=== PATIENT | female | born 1975 | race Caucasian/White ===

== ENCOUNTER 2021-01-02 08:40 | Day surgery (SDC) | payer OTHER ==
[2021-01-02] VITALS (11 sets, daily range): BP systolic 131–146; BP diastolic 72–88; PULSE 61–77; TEMP 97.4
[~2021-01-02] VITALS: Ht 177.8 cm; Wt 155.9 kg
[2021-01-02 09:39] LABS: HEMATOCRIT 38.8 % (37.0-47.0); HEMOGLOBIN 12.6 g/dl (12.5-16.0); MEAN CELL VOLUME 100 fl (80.0-100.0); MEAN CORPUSCULAR HEMOGLOBIN 33 pg (27.0-31.0); MEAN CORPUSCULAR HGB CONC 33 g/dl (33.0-37.0); PLATELET COUNT 326 K/mm3 (130-400); RED BLOOD COUNT 3.88 M/mm3 (4.10-5.30); REDCELL DISTRIBUTION WIDTH-CV 13.2 % (11.5-14.5)
[2021-01-02 09:49] LABS: PROTHROMBIN TIME 11.5 SECONDS (9.7-12.8)
[2021-01-02 09:51] LABS: CALCIUM 8.9 mg/dL (8.4-10.2); CREATININE, serum 0.75 (0.52-1.25); POTASSIUM 4.5 mmol/L (3.4-5.0)
[2021-01-02 09:55] LABS: PARTIAL THROMBOPLASTIN TIME 35.7 SECONDS (26.0-37.0)
[2021-01-02] MEDS ORDERED: ASPIRIN 81M81 MG/TA2 PO (10:23)
[2021-01-02] MEDS ORDERED: TOPROL XL 25MG25 MG PO (10:24)
--- NOTE | 2021-01-02 15:00 | NUR ---
Cardio/resp monitor reset,vitals lost from 1315 to 1500.Pt was observed stable during that time.
--- NOTE | 2021-01-02 15:30 | NUR ---
All air released from band in 3 ml intervals.Dressing to right wrist is observed clean,dry,intact.
--- NOTE | 2021-01-02 15:44 | NUR ---
Discharge instructions given to pt.Pt verbalizes understanding.INT removed,catheter tip intact.Pt escorted out via wheelchair.
== END 2021-01-02 16:11 | disposition home or self-care (01) ==
LOC: COL.CAR 08:40
PROVIDERS: Internal Medicine Cardiovascular Disease
DX: R94.39 Abnormal result of other cardiovascular function study (principal); E66.9 Obesity, unspecified; Z98.84 Bariatric surgery status
CPT/HCPCS: J1644; J2250; J3010; Q9967